=== PATIENT | male | born 1940 | race Caucasian/White ===

== ENCOUNTER 2020-12-16 13:02 | Day surgery (SDC) | payer MEDICARE, OTHER ==
[~2020-12-16] VITALS: Ht 165.1 cm; Wt 77.1 kg
[~2020-12-16 13:02] MED LIST: ASPIR 8181 MG PO; COQ-10100 MG PO; FIBERCON625 M1 PO; FLEXERIL PO; KRILL OIL500 MG PO; LIPITOR20 MG PO; LISINOPRIL10 MG PO; PRESERVISION T1 EACH PO; PROBIOTIC 4X C1 EACH PO; PROBIOTIC1 EAC1 PO; TOPROL XL50 MG PO; VITAMIN B-121000 MCG PO; VITAMIN D35000 UNI1 PO; VITAMIN E400 UNIT PO; VITAMINC500 PO
[2020-12-16 14:00] LABS: ABSOLUTE EOSINOPHILS 0.1 thou/uL (0.0-0.7); ABSOLUTE LYMPHOCYTES 0.8 thou/uL (0.8-5.3); ABSOLUTE MONOCYTES 0.3 thou/uL (0.0-1.2); ABSOLUTE NEUTROPHILS 2.4 thou/uL (1.6-8.1); BASOPHILS 0.8 %; EOSINOPHILS 2.3 %; HEMATOCRIT 33.7 % (42.0-52.0); HEMOGLOBIN 11.5 gm/dL (14.0-18.0); LYMPHOCYTES 23.2 %; MCH 32.3 pg (26.0-34.0); MONOCYTES 7.8 %; MPV 9.3 fl. (7.2-11.1); NUCLEATED RBCS 0 /100WBC; PLATELET COUNT* 106 thou/uL (150-400); POLYS 65.9 %; RBC 3.55 mil/uL (4.50-6.00); RDW-CV 14.1 % (10.5-14.5); WBC 3.6 thou/uL (4.0-11.0)
[2020-12-16 14:12] LABS: INR 1.1; PROTIME 11.7 Seconds (9.20-11.50)
[2020-12-16 14:13] LABS: CALCIUM 9.3 mg/dL (8.5-10.1); CREATININE 1.9 mg/dL (0.6-1.3); POTASSIUM 5.2 mmol/L (3.5-5.1)
--- NOTE | 2020-12-16 14:18 | EKG ---
[place] [address] ELECTROCARDIOGRAM REPORT Name: MANAN LANG Room: [facility]#: [id number] Admission: 12/16/20 Attend Phys: Discharge: Date of : 36 Date of Service: 12/16/20 1314 Report #: [id number] THIS REPORT FOR: //name// [facility] ED Test Date: 2020-12-16 Test Time: 13:14:28 Pat Name: MANAN LANG Department: Room: Gender: [employer]: [facility] : 1940 Requested By: Jim James Order Number: [id number] MD: Venancio Lai Measurements Intervals [place] Rate: 49 P: -53 RI: 62 QRS: -46 QRSD: 135 T: QT: 549 QTc: 496 Interpretive Statements 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
[2020-12-16 14:23] LABS: MAGNESIUM 2.1 mg/dL (1.8-2.4); TOTAL BILIRUBIN 0.5 mg/dL (<0.1-1.0)
[2020-12-16 16:38] VITALS: BP 159/64
[2020-12-16 16:48] VITALS: BP 149/62
[2020-12-16 17:02] VITALS: BP 146/59
[2020-12-16 17:15] VITALS: BP 140/56
[2020-12-16 17:45] VITALS: BP 144/53
--- NOTE | 2020-12-17 17:40 | H ---
[place] [address] HISTORY AND PHYSICAL Name: MANAN LANG Room: [address]#: [id number] Admission: 12/16/20 Attend Phys: Matthew Tanner MD Discharge: Date of : 36 Report #: [id number] THIS REPORT FOR: cc: Kevin Jean Kent DO [place], Michael J. MD [facility] ~ DOC #: [id number] cc: Kevin Jean DO, Douglas F. Biggs, MD [facility] Matthew Tanner MD DATE OF SERVICE: 12/16/2020 CARDIOLOGY ADMISSION HISTORY AND PHYSICAL INDICATION: Complete heart block. HISTORY OF PRESENT ILLNESS: The patient is a very pleasant 80-year-old gentleman with a history of coronary artery disease with remote coronary artery bypass grafting approximately 10 years ago at [facility]. The patient has a history of syncope in the past. He presents for cardiac evaluation today and is found to be in complete heart block. The patient's heart rate is in the 30s. He is having minimal symptoms with this. He denies any syncope today. He denies chest pain, chest tightness or shortness of breath. Cardiac risk factors include dyslipidemia and hypertension. He is not diabetic. He does have some mild chronic edema that is stable. He is without other cardiac complaint. PAST MEDICAL HISTORY: 1. Coronary artery disease with coronary artery bypass grafting approximately 10 years ago. 2. Hypertension. 3. Dyslipidemia. 4. Previous surgery to the fingers on his left hand. FAMILY HISTORY: Noncontributory. SOCIAL HISTORY: The patient is a lifelong nonsmoker. He does not drink alcohol. He is and lives with his outside of [place], [place]. ALLERGIES: None documented. CURRENT MEDICATIONS: Amlodipine 5 mg daily, vitamin C 100 mg daily, aspirin 81 mg daily, vitamin D3 5000 units daily, CoQ10 30 mg 3 times daily, garlic capsules 2000 mg daily, hydralazine 25 mg b.i.d., hydrochlorothiazide 25 mg daily, lisinopril 20 mg twice daily, multivitamin 1 tablet daily, [place]3 [place] [address] HISTORY AND PHYSICAL Name: MANAN LANG Room: [address]#: [id number] Admission: 12/16/20 Attend Phys: Matthew Tanner MD Discharge: Date of : 36 Report #: [id number] 1000 mg daily, probiotic capsule 1 daily, cinnamon 1000 mg daily, Flomax 0.4 mg daily, vitamin A 25,000 units daily, B12 2000 mcg daily, vitamin E 400 units daily. REVIEW OF SYSTEMS: A 14-point review of systems positive for remote history of syncope. He has chronic lower extremity edema that is stable. Otherwise, 14-point review of symptoms was unremarkable. PHYSICAL EXAMINATION: VITAL SIGNS: Blood pressure 130/60. Heart rate currently 42. GENERAL: This is a pleasant gentleman in no distress. Mood and affect appropriate. HEENT: Extraocular muscles intact. Mucous membranes are moist. NECK: Examination of the neck shows no jugular venous distention. There are no carotid bruits. CHEST: Reveals clear lung jeff. CARDIAC: Reveals a regular rhythm with a grade 2/6 apical systolic murmur. I do not appreciate gallop. ABDOMEN: Examination of the abdomen reveals normal bowel sounds. Abdomen is soft, nontender. EXTREMITIES: Shows 1+ edema to the mid tibias bilaterally. The patient has pressure support stockings in place. IMPRESSION AND RECOMMENDATIONS: 1. Complete heart block with syncope in the past. The patient will undergo pacemaker placement. He is on no rate controlling medications at this time. 2. Hypertension. Blood pressure appears adequately controlled on current cardiac regimen. 3. Coronary artery disease, presently stable. Continue daily aspirin and risk factor modification. 4. Hyperlipidemia. Continue atorvastatin. Goal LDL 70 or less. aMtthew Tanner MD [facility] <ELECTRONICALLY SIGNED> By: Matthew Tanner MD, FACC 12/17/20 1740 1252 1315Michael Elvi Tanner MD, FACC /nt
--- NOTE | 2020-12-18 15:23 | CARD ---
[address] [address] CARDIAC CATH REPORT Name: MANAN LANG Room: [address]#: [id number] Admission: 12/16/20 Attend Phys: Matthew Tanner MD Discharge: Date of : 36 Report #: [id number] THIS REPORT FOR: cc: Kevin Jean Kent DO [place], Michael J. MD [facility] ~ APPROVED REPORT Study performed: 12/16/2020 13:56:21 Patient Status: Out-Patient Room #: Event Personnel: Matthew Tanner Merchant Police, Gloria Acuña RN Retail Service Lead Merchandiser, Lima Reynaga RTR Monitor, Joanne Garrett RTR Scrub Exam: Insertion of Dual Chamber Permanent Pacemaker Indications: Heart Block The patient is a 80 year-old male with a history of . Conscious Sedation Start time: 15:16 End Time: 16:08 Fentanyl 25 mcg Versed 1 mg Implanted Devices: SOLIA S 60 BIOTRONIK VENTRICULAR LEAD. SN: [id number]. SOLIA S 53 BIOTRONIK ATRIAL LEAD. SN: [id number]. EDORA 8 DR-T BIOTRONIK PACEMAKER. SN: [id number]. Procedure The patient underwent informed consent. We discussed the details of the procedure including the risks, which include, but not limited to bleeding, infection, vascular damage, cardiac perforation, and pneumothorax. He understood these risks and was willing to proceed. As such, he was brought to the EP/Cardiac Catheterization laboratory in a fasting and sedated state and prepped and draped in a sterile fashion, received IV antibiotics prior to initiation of the procedure and a venogram was performed showing patency of the left axillary vein. The patient underwent conscious sedation, with no related complications. The patient was brought to the EP/Cardiac Catheterization laboratory and the left chest and shoulder were prepped and draped in a sterile manner. During this case, Fluoroscopy and 20 ml [place] [address] CARDIAC CATH REPORT Name: MANAN LANG Frandy Room: [address]#: [id number] Admission: 12/16/20 Attend Phys: Matthew Tanner MD Discharge: Date of : 36 Report #: [id number] imaging. IV conscious sedation was used throughout procedure with appropriate monitoring and was performed in the presence of a registered nurse who was an independent trained observer other than the physician performing the procedure. The left subclavian region was infiltrated with 2% Lidocaine with Epinephrine subcutaneous anesthesia. A transverse incision was made in the left upper chest cavity. The subcutaneous pocket was formed via blunt dissection. Percutaneous venous access was achieved and an introducer sheath was inserted into the left Subclavian vein. Through the introducer sheaths the atrial and ventricular lead wires were positioned in the right atrial appendage and right ventricular apex respectively. Utilizing fluoroscopic guidance, the atrial and ventricular lead wires were advanced over the wires and positioned in the right atria and right ventricle respectively. Capturing and sensing thresholds were verified. Electrode Parameters P Wave: 4.8 mV R Wave: 13 mV Atrial Threshold: 1.1 v at 0.40 ms Ventricular Threshold: 0.9 V at 0.40 ms Atrial Resistance: 445 ohms Ventricular Resistance: 719 ohms Dual Chamber The atrial and ventricular leads were then secured using 0 silk sutures. The subcutaneous pocket was irrigated with Ancef 1 gram antibiotic solution.The atrial and ventricular leads were attached to the appropriate receptacles on the pulse generator and set screws firmly tightened to insure adequate contact and stability. The lead and pulse generator were placed into the subcutaneous pocket. Sharp and sponge counts were confirmed to be correct. At this time the pocket was closed subcutaneously with a 2.0 Vicryl and the skin was closed with a 4.0 Vicryl. The operative site was dressed in sterile fashion with benzoin spray, steri strips, telfa, and tegaderm and the patient was transferred to the floor in stable condition. Complications The patient tolerated the procedure well and there were no complications [place] [address] CARDIAC CATH REPORT Name: MANAN LANG Room: [address]#: [id number] Admission: 12/16/20 Attend Phys: Matthew Tanner MD Discharge: Date of : 36 Report #: [id number] Findings Specimens Removed: No 6.7 minutes fluoro. 465.67 DAP. 20 mGy. Conclusion 1. Complete heart block. 2. Successful placement of a dual-chamber pacemaker with atrial and ventricular lead placement. Recommendations 1. Follow-up site check in 1 week. 2. Follow-up device interrogation in 1 to 2 months. <ELECTRONICALLY SIGNED> By: Matthew Tanner MD, FACC 12/18/20 1523 1523 1523Micangie Tanner MD, [facility] /INF
== END 2020-12-16 18:14 | disposition home or self-care (01) ==
LOC: M.ERS 13:02 → M.TBA-CV 14:20 → M.CL 14:20
PROVIDERS: Emergency Medicine Emergency Medical Services; ATTEND Internal Medicine Cardiovascular Disease
DX: I44.2 Atrioventricular block, complete (principal); R00.1 Bradycardia, unspecified; I10 Essential (primary) hypertension; E78.5 Hyperlipidemia, unspecified; I25.10 Atherosclerotic heart disease of native coronary artery without angina pectoris; Z98.890 Other specified postprocedural states; Z79.899 Other long term (current) drug therapy; Z90.49 Acquired absence of other specified parts of digestive tract; Z85.828 Personal history of other malignant neoplasm of skin; Z95.1 Presence of aortocoronary bypass graft; Z79.82 Long term (current) use of aspirin

== ENCOUNTER → 2021-02-03 | Outpatient (CLI) | payer MEDICARE, OTHER ==
--- NOTE | 2021-02-03 12:39 | CARDNUC ---
[place] [address] CARDIAC NUCLEAR IMAGING REPORT Name: MANAN LANG Room: [facility]#: [id number] Admission: 02/03/21 Attend Phys: Yanna Najera, Discharge: Date of : 36 Date of Service: 02/03/21 1239 Report #: [id number] THIS REPORT FOR: cc: Kevin Jean Kent DO Biggs, F. Douglas MD [facility] ~ APPROVED REPORT Study performed: 02/03/2021 08:00:00 Indication: bilateral arm pain Patient Location: Out-Patient Stress Nurse: Alla Jordan RN Ht: 5 ft 10 in Wt: 164 lbs BSA: 1.92 m2 BMI: 23.52 Medical History Medical History: HTN, Hyperlipidemia, rbbb, ppm,bilateral carotid artery stenosis Medications: amlodipine, asa-81, artorvastatin, hydralazine, hctz, lisinopril Allergies: No known drug allergies Cardiac Risk Factors: FHX of CAD, HTN, Hyperlipidemia Previous Cardiac Procedures: PPM Exercise History: Indeterminate Resting Data Rest SPECT myocardial perfusion imaging was performed in supine position 30 minutes following the intravenous injection of 12.0 mCi of Tc-99m Sestamibi. Time of rest injection: 08:40 The images were gated to evaluate regional wall motion and calculate left ventricular ejection fraction. Administration Route: IV Administration Site: Right Hand Pharmacologic Stress Pharmacologic stress test was performed by injecting Regadenoson 0.4 mg IV push over 10-15 seconds immediately followed by the intravenous injection of 33.0 mCi of Tc-99m Sestamibi. Time of stress injection: 10:30 Administration Route: IV Administration Site: [place] [address] CARDIAC NUCLEAR IMAGING REPORT Name: MANAN LANG Room: [facility]#: [id number] Admission: 02/03/21 Attend Phys: Yanna Najera, Discharge: Date of : 36 Date of Service: 02/03/21 1239 Report #: [id number] Heart Rate at time of stress injection: 107 bpm. Gated Stress SPECT was performed 40 minutes after stress injection. The images were gated to evaluate regional wall motion and calculate left ventricular ejection fraction. Prone imaging was performed. Stress Test Details Stress Test: Pharmacologic stress testing performed using 0.4 mg of regadenoson per 5 mL given IV over 10 seconds. Reason for pharmacologic stress test: ppm. HR Max Heart Rate (APMHR): 138 bpm Resting HR: 78 bpm Target HR (85% APMHR): 117 bpm Max HR Achieved: 107 bpm % of APMHR: 77 Recovery HR: 101 bpm HR response to stress: Normal HR response to stress BP Resting BP: 139/61 mmHg Max BP: 114/43 mmHg Recovery BP: 153/50 mmHg BP response to stress: Normal blood pressure response to stress. ECG Resting ECG: Paced Rhythm Stress ECG: Paced Rhythm ST Change: None Arrhythmia: None Recovery ECG: Paced Rhythm Recovery ST Change: None Recovery Arrhythmia: None Clinical Reason for Termination: Completed protocol Stress Symptoms: None Stress ECG Conclusion Normal hemodynamic response to pharmacologic stress. Clinical: Non-ischemic Non-diagnostic pharmacologic EKG stress due to failure to attain target HR. Study Quality Study: [place] [address] CARDIAC NUCLEAR IMAGING REPORT Name: MANAN LANG Room: [facility]#: [id number] Admission: 02/03/21 Attend Phys: Yanna Najera, Discharge: Date of : 36 Date of Service: 02/03/21 1239 Report #: [id number] Artifact: Mild Soft tissue attenuation artifact Lung Uptake: Normal Study Data At rest, the left ventricular ejection fraction was 67%.. Post stress, the left ventricular ejection was 73%.. SSS: 4 SRS: 3 SDS: 1 TID = 0.72. Perfusion The resting study demonstrated a moderate sized mild intensity septal defect. There was also small in size and moderate intensity inferior defect near the base. Additionally there was a moderate in size mild intensity anterior defect. The post stress images demonstrate only a small mild inferior defect. Prone images were obtained and demonstrated no defects. There therefore no reversible defects seen and no evidence of myocardial ischemia.No evidence of stress induced ischemia or prior myocardial infarction. Images were reviewed using . Wall Motion Normal left ventricular wall motion. Nuclear Conclusion ECG Findings: non-diagnostic Clinical Findings: negative for ischemia Nuclear Findings: negative for ischemia Exercise Capacity: not assessed Left Ventricular Function: normal Risk Study: low Normal study. No scintigraphic evidence for myocardial ischemia or scar. <Conclusion> Normal hemodynamic response to pharmacologic stress. Clinical: Non-ischemic Non-diagnostic pharmacologic EKG stress due to failure to attain target HR. <ELECTRONICALLY SIGNED> By: Yanna Najera MD, FACC 02/03/21 1239 1239 1239 Yanna Najera MD, FACC /INF
== END ==
LOC: M.NUC 01-20 09:26
PROVIDERS: ATTEND Internal Medicine
DX: I25.10 Atherosclerotic heart disease of native coronary artery without angina pectoris (principal); M79.601 Pain in right arm; M79.602 Pain in left arm; Z95.1 Presence of aortocoronary bypass graft